=== PATIENT | male | born 1965 | race African-American/Black ===

== ENCOUNTER 2020-04-10 14:37 | Outpatient (REF) | payer BC, SELFPAY | END 2020-04-10 14:38 | disposition home or self-care (01) | LOC: HO.LAB 14:37 | PROVIDERS: Visit Provider Internal Medicine | DX: Z20.828 Contact with and (suspected) exposure to other viral communicable diseases (principal) | CPT/HCPCS: C9803; U0003 ==

== ENCOUNTER 2020-05-01 15:21 | Outpatient (REF) | payer BC, SELFPAY | END 2020-05-01 15:22 | disposition home or self-care (01) | LOC: HO.LAB 15:21 | PROVIDERS: Visit Provider Internal Medicine | DX: Z20.822 Contact with and (suspected) exposure to COVID-19 (principal) | CPT/HCPCS: 36415; C9803; U0003 ==